=== PATIENT | male | born 1955 | race Caucasian/White ===

== ENCOUNTER 2022-02-16 16:05 | Inpatient (IN) | payer MEDICAID ==
[~2022-02-16] VITALS: Ht 172.7 cm; Wt 63.2 kg
[2022-02-16] MEDS ORDERED: SODIUM CHLORIDE 0.9% 1,000 ML IV ONE (16:15)
[2022-02-16] MEDS ORDERED: NALOXONE HCL 1 MG/ML 2 ML SYRINGE IVP ONE ×2 (16:15→16:20)
[2022-02-16] MEDS ORDERED: ROCURONIUM BROMIDE 10 MG/ML 5 ML VIAL ONE (16:29)
[2022-02-16 16:47] LABS: ABG BASE EXCESS -5.2 mmol/L (-2.0-3.0); ABG METHEMOGLOBIN 0.4 % (0.0-1.5); ABG OXYGEN CONTENT 17.8 mL/dL (15.0-23.0); ABG OXYGEN SATURATION 94.4 % (95.0-98.0); ABG OXYHEMOGLOBIN 93.1 % (94.0-100.0); ABG PCO2 31 mmHg (35-45); ABG PH 7.411 (7.35-7.450); ABG TOTAL HEMOGLOBIN 13.6 G/dL (12.0-18.0); PO2, ARTERIAL BG 76.3 mmHg (66.0-74.0); SOURCE, BLOOD GAS ARTERIAL; TEMPERATURE, FAHRENHEIT, BG 97.9 FAHREN (96.0-98.6)
[2022-02-16 16:48] LABS: BASOPHILS % (AUTO) 0.8 % (0.0-2.0); EOSINOPHILS % (AUTO) 0.6 % (1.0-6.0); HEMATOCRIT 42.1 % (41-53); HEMOGLOBIN 13.2 g/dL (13.5-17.5); LYMPHOCYTES # (AUTO) 1.7 K/uL (1.0-4.8); LYMPHOCYTES % (AUTO) 23.5 % (22.0-44.0); MEAN CORPUSCULAR HEMOGLOBIN 28.2 pg (26.0-34.0); MEAN CORPUSCULAR HGB CONC 31.3 G/dL (31.0-37.0); MEAN CORPUSCULAR VOLUME 90 fL (80-100); MONOCYTES # (AUTO) 0.6 K/uL (0.1-1.0); MONOCYTES % (AUTO) 8.6 % (2.0-9.0); NEUTROPHILS # (AUTO) 4.9 K/uL (1.8-7.7); NEUTROPHILS % (AUTO) 66.5 % (40.0-70.0); PLATELET COUNT (AUTO) 111 K/uL (150-450); RED BLOOD CELL COUNT(AUTO) 4.67 MIL/uL (4.50-5.90); RED CELL DISTRIBUTION WIDTH 18.1 % (11.5-14.5)
[2022-02-16 16:48] LABS: ABG A-A DIFF O2 606.4 mmHg (10-20.0); SITE, BLOOD GAS RT RADIAL
[2022-02-16 16:49] LABS: O2 DEVICE,BLOOD GAS NON REBREATHER (ROOM AIR)
[2022-02-16 16:55] LABS: B-TYPE NATRIURETIC PEPTIDE 1280 pg/mL (0-100)
[2022-02-16 17:02] LABS: ANION GAP 11 mmol/L (8-16); CALCIUM, TOTAL 7.9 mg/dL (8.8-10.5); CARBON DIOXIDE 26 mmol/L (22-29); CHLORIDE 107 mmol/L (98-107); CREATININE 1.73 mg/dL (0.60-1.30); GLUCOSE,RANDOM 130 mg/dL (70-110); POTASSIUM 3.8 mmol/L (3.5-5.1); SODIUM SERUM 144 mmol/L (136-145); UREA NITROGEN, BLOOD 35 mg/dL (7-18)
[2022-02-16 17:03] LABS: AMMONIA 85 umol/L (11-32)
[2022-02-16 17:04] LABS: GLOMERULAR FILTR. RATE CALC 36 mL/min (>60)
[2022-02-16 17:11] LABS: PLATELET MORPHOLOGY COMMENT GIANT PLTS PRESENT
[2022-02-16 17:23] LABS: COVID AG,FIA SOURCE NASOPHARYNGEAL
[2022-02-16 17:26] LABS: ALANINE AMINOTRANSFERASE 68 U/L (12-78); ALBUMIN 2.5 g/dL (3.4-5.0); ALKALINE PHOSPHATASE 118 U/L (46-116); ASPARTATE AMINOTRANSFERASE 60 U/L (15-37); BILIRUBIN,TOTAL 0.6 mg/dL (0.1-1.0); CREATINE KINASE, TOTAL ONLY 173 U/L (39-308); LIPASE 54 U/L (73-393); TOTAL PROTEIN, SERUM 5.2 g/dL (6.4-8.2)
[2022-02-16] MEDS ORDERED: ROCURONIUM BROMIDE 10 MG/ML 5 ML VIAL IVP ONE (17:30)
[2022-02-16] MEDS ORDERED: LACTULOSE 20 GM/30 ML SOLUTION UDCUP NG ONE (17:30)
[2022-02-16 17:31] LABS: ACETAMINOPHEN < 2 mcg/mL (10-30)
[2022-02-16 17:35] LABS: LACTIC ACID 4.4 mmol/L (0.4-2.0)
[2022-02-16] MEDS ORDERED: PHENYLEPHRINE HCL IN 0.9% NACL 400 MCG/10 ML SYRINGE IVP ONE (17:35)
[2022-02-16] MEDS: PROPOFOL 1000 MG/ISO-OSM 100 ML IV PRN (17:51)
[2022-02-16 18:10] LABS: APPEARANCE,URINE HAZY (CLEAR); BILIRUBIN,URINE NEGATIVE (NEGATIVE); GLUCOSE, URINE (UA) NEGATIVE (NEGATIVE); KETONES,URINE NEGATIVE (NEGATIVE); LEUKOCYTE ESTERASE ,URINE TRACE (NEGATIVE); NITRATE,URINE NEGATIVE (NEGATIVE); OCCULT BLOOD,URINE SMALL (NEGATIVE); PH,URINE 6.5 (5.0-8.0); PROTEIN,URINE 100-200,SEE CONFIRM mg/dL (NEGATIVE); SPECIFIC GRAVITIY, URINE 1.009 (1.003-1.030); UROBILINOGEN,URINE <=1.0 mg/dL (<=1.0)
[2022-02-16 18:23] LABS: BACTERIA,URINE None Seen /HPF (None Seen); SQUAMOUS EPITHELIAL CELL,UR Rare /LPF (None Seen); WBC,URINE 0-2 /HPF (0-5)
[2022-02-16 18:29] LABS: SULFOSALICYLIC ACID,URINE 2+ (Negative)
[2022-02-16 18:53] LABS: AMPHET/METH SCREEN,URINE NEGATIVE (NEGATIVE); BARBITURATE SCREEN, URINE NEGATIVE (NEGATIVE); BENZODIAZEPINES SCREEN,URINE NEGATIVE (NEGATIVE); CANNABINOID SCREEN,URINE POSITIVE (NEGATIVE); COCAINE SCREEN,URINE NEGATIVE (NEGATIVE); METHADONE SCREEN, URINE NEGATIVE (NEGATIVE); OPIATE SCREEN,URINE NEGATIVE (NEGATIVE)
[2022-02-16 19:04] LABS: PHENCYCLIDINE SCREEN,URINE NEGATIVE (NEGATIVE)
[2022-02-16] MEDS ORDERED: ONDANSETRON HCL 4 MG/2 ML VIAL IVP PRN (19:30)
[2022-02-16] MEDS ORDERED: PIPERACILLIN/TAZO 3.375 GM/D5W 50 ML IV ONE (20:00)
[2022-02-16 20:49] LABS: ABG BASE EXCESS -5.7 mmol/L (-2.0-3.0); ABG CARBOXYHEMOGLOBIN 0.2 % (0.0-1.5); ABG HCO3 20.3 mmol/L (22.0-26.0); ABG METHEMOGLOBIN 0.4 % (0.0-1.5); ABG OXYGEN CONTENT 19.8 mL/dL (15.0-23.0); ABG OXYGEN SATURATION 99.2 % (95.0-98.0); ABG OXYHEMOGLOBIN 98.6 % (94.0-100.0); ABG PCO2 40 mmHg (35-45); ABG PH 7.328 (7.35-7.450); ABG TOTAL HEMOGLOBIN 13.9 G/dL (12.0-18.0); PO2, ARTERIAL BG 223.5 mmHg (79.0-87.0); SOURCE, BLOOD GAS ARTERIAL; TEMPERATURE, FAHRENHEIT, BG 98.6 FAHREN (96.0-98.6)
[2022-02-16 20:50] LABS: O2 DEVICE,BLOOD GAS VENTILATOR (ROOM AIR); SITE, BLOOD GAS ARTERIAL LINE; VT, ABG 450 ml
[2022-02-16 20:51] LABS: PEEP,BG 5 cm H2O
[2022-02-16] MEDS ORDERED: LACTULOSE 20 GM/30 ML SOLUTION UDCUP PO ONE (23:30)
[2022-02-17 00:38] LABS: CALCIUM, TOTAL 7.7 mg/dL (8.8-10.5); CREATININE 1.42 mg/dL (0.60-1.30); POTASSIUM 4.1 mmol/L (3.5-5.1)
[2022-02-17] MEDS: HEPARIN SODIUM,PORCINE 5,000 UNITS/ML VIAL SQ SCH ×3 (01:04→15:12)
[2022-02-17] MEDS: PIPERACILLIN/TAZO 3.375 GM/D5W 50 ML IV SCH ×4 (04:48→21:06)
[2022-02-17] MEDS: PROPOFOL 1000 MG/ISO-OSM 100 ML IV PRN ×3 (04:51→21:08)
[2022-02-17 05:25] LABS: BASOPHILS % (AUTO) 0.6 % (0.0-2.0); EOSINOPHILS % (AUTO) 0.3 % (1.0-6.0); HEMATOCRIT 44.4 % (41-53); HEMOGLOBIN 14.2 g/dL (13.5-17.5); LYMPHOCYTES # (AUTO) 0.9 K/uL (1.0-4.8); LYMPHOCYTES % (AUTO) 9.5 % (22.0-44.0); MEAN CORPUSCULAR HEMOGLOBIN 28.8 pg (26.0-34.0); MEAN CORPUSCULAR HGB CONC 32.1 G/dL (31.0-37.0); MEAN CORPUSCULAR VOLUME 90 fL (80-100); MONOCYTES # (AUTO) 0.6 K/uL (0.1-1.0); MONOCYTES % (AUTO) 7.2 % (2.0-9.0); NEUTROPHILS # (AUTO) 7.4 K/uL (1.8-7.7); NEUTROPHILS % (AUTO) 82.4 % (40.0-70.0); PLATELET COUNT (AUTO) 110 K/uL (150-450); RED BLOOD CELL COUNT(AUTO) 4.95 MIL/uL (4.50-5.90); RED CELL DISTRIBUTION WIDTH 18.7 % (11.5-14.5)
[2022-02-17 05:28] LABS: CALCIUM, TOTAL 8.3 mg/dL (8.8-10.5); CREATININE 1.32 mg/dL (0.60-1.30); MAGNESIUM 2.3 mg/dL (1.80-2.40)
[2022-02-17 05:39] LABS: PLATELET MORPHOLOGY COMMENT GIANT PLTS PRESENT
[2022-02-17] MEDS ORDERED: DEXTROSE 5%-WATER 500 ML IV ONE (06:00)
[2022-02-17] MEDS: ACETAMINOPHEN 325 MG TABLET PO PRN ×2 (07:49→16:47)
[2022-02-17] MEDS: FAMOTIDINE 10 MG/ML 2 ML VIAL IVP SCH ×2 (11:25→20:32)
[2022-02-17] MEDS ORDERED: PHENYLEPHRINE 200 MG/D5%-WATER 250 ML IV PRN (16:00)
[2022-02-17] MEDS ORDERED: FUROSEMIDE 40 MG/4 ML VIAL IVP ONE (16:00)
[2022-02-17] MEDS ORDERED: HEPARIN SODIUM,PORCINE 5,000 UNITS/ML VIAL IVP PRN (17:30)
[2022-02-17] MEDS ORDERED: HEPARIN SODIUM,PORCINE 5,000 UNITS/ML VIAL IVP ONE (17:30)
[2022-02-17] MEDS: HEPARIN SODIUM 25000 UNITS/D5W 250 ML IV PRN (18:12)
[2022-02-17] MEDS ORDERED: FUROSEMIDE 40 MG/4 ML VIAL IVP SCH (21:00)
[2022-02-18] MEDS: ACETAMINOPHEN 325 MG TABLET PO PRN ×4 (00:37→18:51)
[2022-02-18] MEDS: PIPERACILLIN/TAZO 3.375 GM/D5W 50 ML IV SCH ×4 (03:17→21:31)
[2022-02-18] MEDS: PROPOFOL 1000 MG/ISO-OSM 100 ML IV PRN ×3 (05:39→18:50)
[2022-02-18 05:53] LABS: BASOPHILS % (AUTO) 0.2 % (0.0-2.0); EOSINOPHILS % (AUTO) 0 % (1.0-6.0); HEMATOCRIT 44.6 % (41-53); HEMOGLOBIN 14.2 g/dL (13.5-17.5); LYMPHOCYTES # (AUTO) 0.5 K/uL (1.0-4.8); LYMPHOCYTES % (AUTO) 3.7 % (22.0-44.0); MEAN CORPUSCULAR HEMOGLOBIN 28.6 pg (26.0-34.0); MEAN CORPUSCULAR HGB CONC 31.9 G/dL (31.0-37.0); MEAN CORPUSCULAR VOLUME 90 fL (80-100); MONOCYTES # (AUTO) 0.9 K/uL (0.1-1.0); NEUTROPHILS # (AUTO) 12.1 K/uL (1.8-7.7); RED BLOOD CELL COUNT(AUTO) 4.97 MIL/uL (4.50-5.90); RED CELL DISTRIBUTION WIDTH 18.5 % (11.5-14.5)
[2022-02-18 06:05] LABS: ALBUMIN 2.2 g/dL (3.4-5.0); BILIRUBIN,TOTAL 0.8 mg/dL (0.1-1.0); CREATININE 1.58 mg/dL (0.60-1.30); POTASSIUM 3.7 mmol/L (3.5-5.1); TOTAL PROTEIN, SERUM 5.1 g/dL (6.4-8.2)
[2022-02-18 06:07] LABS: CREATININE,URINE RANDOM 40.5 mg/dL (30.0-125.0)
[2022-02-18 08:08] LABS: NEUTROPHILS % (AUTO) 89.1 % (40.0-70.0)
[2022-02-18 08:27] LABS: PLATELET COUNT (AUTO) 92 K/uL (150-450)
[2022-02-18 08:29] LABS: PLATELET MORPHOLOGY COMMENT LARGE PLTS PRESENT
[2022-02-18] MEDS: FAMOTIDINE 10 MG/ML 2 ML VIAL IVP SCH ×2 (08:43→21:31)
[2022-02-18] MEDS: FUROSEMIDE 40 MG/4 ML VIAL IVP SCH (08:43)
[2022-02-18] MEDS: METOPROLOL SUCCINATE 25 MG ER TABLET PO SCH ×2 (09:00→21:31)
[2022-02-18 16:00] VITALS: BP 141/68
[2022-02-18] MEDS ORDERED: SODIUM CHLORIDE 0.9% 250 ML IV ONE (16:02)
[2022-02-18] MEDS: HEPARIN SODIUM 25000 UNITS/D5W 250 ML IV PRN (16:08)
[2022-02-18 20:00] VITALS: BP 147/71
[2022-02-18 20:56] LABS: GLUCOSE,POINT OF CARE 129 MG/DL (70-110)
[2022-02-18] MEDS: HEPARIN SODIUM,PORCINE 5,000 UNITS/ML VIAL IVP PRN (22:36)
[2022-02-19] VITALS: BP 133/72
[2022-02-19] MEDS: PIPERACILLIN/TAZO 3.375 GM/D5W 50 ML IV SCH ×4 (03:28→22:13)
[2022-02-19 04:00] VITALS: BP 119/57
[2022-02-19 05:56] LABS: BASOPHILS % (AUTO) 0.3 % (0.0-2.0); EOSINOPHILS % (AUTO) 0 % (1.0-6.0); HEMATOCRIT 44.7 % (41-53); HEMOGLOBIN 14.3 g/dL (13.5-17.5); LYMPHOCYTES # (AUTO) 0.4 K/uL (1.0-4.8); LYMPHOCYTES % (AUTO) 3.3 % (22.0-44.0); MEAN CORPUSCULAR HEMOGLOBIN 28.6 pg (26.0-34.0); MEAN CORPUSCULAR HGB CONC 32.1 G/dL (31.0-37.0); MEAN CORPUSCULAR VOLUME 89 fL (80-100); MONOCYTES % (AUTO) 7.5 % (2.0-9.0); NEUTROPHILS # (AUTO) 11.6 K/uL (1.8-7.7); PLATELET COUNT (AUTO) 83 K/uL (150-450)
[2022-02-19 06:01] LABS: NEUTROPHILS % (AUTO) 88.9 % (40.0-70.0)
[2022-02-19 06:12] LABS: ALBUMIN 2.1 g/dL (3.4-5.0); CALCIUM, TOTAL 8.5 mg/dL (8.8-10.5); CREATININE 1.52 mg/dL (0.60-1.30); MAGNESIUM 2.1 mg/dL (1.80-2.40); POTASSIUM 3.6 mmol/L (3.5-5.1); TOTAL PROTEIN, SERUM 5.4 g/dL (6.4-8.2)
[2022-02-19 06:47] LABS: PLATELET MORPHOLOGY COMMENT LARGE PLTS PRESENT
[2022-02-19] MEDS: PROPOFOL 1000 MG/ISO-OSM 100 ML IV PRN (07:01)
[2022-02-19 08:00] VITALS: BP 153/72
[2022-02-19] MEDS: METOPROLOL SUCCINATE 25 MG ER TABLET PO SCH ×2 (09:20→22:13)
[2022-02-19] MEDS: FUROSEMIDE 40 MG/4 ML VIAL IVP SCH (09:20)
[2022-02-19] MEDS: FAMOTIDINE 10 MG/ML 2 ML VIAL IVP SCH ×2 (09:20→22:13)
[2022-02-19 11:19] LABS: ABG A-A DIFF O2 102.3 mmHg (10-20.0); ABG BASE EXCESS 1.6 mmol/L (-2.0-3.0); ABG CARBOXYHEMOGLOBIN 1.2 % (0.0-1.5); ABG HCO3 26.1 mmol/L (22.0-26.0); ABG METHEMOGLOBIN 0.3 % (0.0-1.5); ABG OXYGEN CONTENT 19.8 mL/dL (15.0-23.0); ABG OXYHEMOGLOBIN 92.6 % (94.0-100.0); ABG PCO2 36 mmHg (35-45); ABG PH 7.463 (7.35-7.450); ABG TOTAL HEMOGLOBIN 15.2 G/dL (12.0-18.0); CPAP, BG 0 cm H2O; O2 DEVICE,BLOOD GAS VENTILATOR (ROOM AIR); PRESSURE SUPPORT, BG 8 cm H2O; SITE, BLOOD GAS ARTERIAL LINE; SOURCE, BLOOD GAS ARTERIAL; SPONTANEOUS VT, BG 625 ml; TEMPERATURE, FAHRENHEIT, BG 98.6 FAHREN (96.0-98.6); VENT MODE, BG CPAP (ROOM AIR)
[2022-02-19 12:00] VITALS: BP 149/74
[2022-02-19 16:00] VITALS: BP 148/69
[2022-02-19] MEDS: HEPARIN SODIUM 25000 UNITS/D5W 250 ML IV PRN (17:01)
[2022-02-19 18:48] LABS: ABG BASE EXCESS 2.4 mmol/L (-2.0-3.0); ABG CARBOXYHEMOGLOBIN 0.9 % (0.0-1.5); ABG HCO3 26.8 mmol/L (22.0-26.0); ABG METHEMOGLOBIN 0.3 % (0.0-1.5); ABG OXYGEN CONTENT 20.7 mL/dL (15.0-23.0); ABG OXYGEN SATURATION 93.6 % (95.0-98.0); ABG OXYHEMOGLOBIN 92.5 % (94.0-100.0); ABG PCO2 35 mmHg (35-45); ABG PH 7.487 (7.35-7.450); ABG TOTAL HEMOGLOBIN 15.9 G/dL (12.0-18.0); PO2, ARTERIAL BG 65.5 mmHg (79.0-87.0); SOURCE, BLOOD GAS ARTERIAL; TEMPERATURE, FAHRENHEIT, BG 97.9 FAHREN (96.0-98.6)
[2022-02-19 18:49] LABS: ABG A-A DIFF O2 122.2 mmHg (10-20.0); O2 DEVICE,BLOOD GAS NASAL VANNULA (ROOM AIR); SITE, BLOOD GAS LFT RADIAL
[2022-02-19 20:00] VITALS: BP 161/82
[2022-02-19] MEDS: ACETAMINOPHEN 325 MG TABLET PO PRN (22:18)
[2022-02-20] VITALS: BP 164/67
[2022-02-20 04:00] VITALS: BP 161/82
[2022-02-20] MEDS: PIPERACILLIN/TAZO 3.375 GM/D5W 50 ML IV SCH ×4 (04:47→20:53)
[2022-02-20] MEDS ORDERED: SODIUM CHLORIDE 0.9% 250 ML IV ONE (05:37)
[2022-02-20 08:00] VITALS: BP 148/62
[2022-02-20] MEDS: FUROSEMIDE 40 MG/4 ML VIAL IVP SCH (10:02)
[2022-02-20] MEDS: FAMOTIDINE 10 MG/ML 2 ML VIAL IVP SCH ×2 (10:03→20:51)
[2022-02-20] MEDS: METOPROLOL SUCCINATE 25 MG ER TABLET PO SCH (10:03)
[2022-02-20] MEDS: HEPARIN SODIUM,PORCINE 5,000 UNITS/ML VIAL IVP PRN (10:05)
[2022-02-20] MEDS ORDERED: METOPROLOL SUCCINATE 25 MG ER TABLET PO ONE (11:00)
[2022-02-20 12:00] VITALS: BP 151/75
[2022-02-20 16:00] VITALS: BP 142/58
[2022-02-21] VITALS: BP 131/72
[2022-02-21] MEDS: PIPERACILLIN/TAZO 3.375 GM/D5W 50 ML IV SCH ×4 (03:43→21:02)
[2022-02-21 04:00] VITALS: BP 136/53
[2022-02-21 07:05] LABS: CALCIUM, TOTAL 8.2 mg/dL (8.8-10.5); CREATININE 1.41 mg/dL (0.60-1.30); POTASSIUM 3.4 mmol/L (3.5-5.1)
[2022-02-21] MEDS: FAMOTIDINE 10 MG/ML 2 ML VIAL IVP SCH ×2 (07:52→20:53)
[2022-02-21] MEDS: FUROSEMIDE 40 MG/4 ML VIAL IVP SCH (07:52)
[2022-02-21 08:00] VITALS: BP 134/56
[2022-02-21] MEDS ORDERED: METOPROLOL SUCCINATE 50 MG ER TABLET PO SCH (09:00)
[2022-02-21 10:43] LABS: BASOPHILS % (AUTO) 0.7 % (0.0-2.0); EOSINOPHILS % (AUTO) 0.2 % (1.0-6.0); HEMATOCRIT 42.3 % (41-53); HEMOGLOBIN 13.6 g/dL (13.5-17.5); LYMPHOCYTES # (AUTO) 0.6 K/uL (1.0-4.8); MEAN CORPUSCULAR HEMOGLOBIN 28.8 pg (26.0-34.0); MEAN CORPUSCULAR HGB CONC 32.2 G/dL (31.0-37.0); MEAN CORPUSCULAR VOLUME 90 fL (80-100); MONOCYTES # (AUTO) 0.8 K/uL (0.1-1.0); MONOCYTES % (AUTO) 11.1 % (2.0-9.0); NEUTROPHILS # (AUTO) 6.1 K/uL (1.8-7.7); PLATELET COUNT (AUTO) 72 K/uL (150-450); RED BLOOD CELL COUNT(AUTO) 4.72 MIL/uL (4.50-5.90); RED CELL DISTRIBUTION WIDTH 17.6 % (11.5-14.5)
[2022-02-21 10:47] LABS: PLATELET MORPHOLOGY COMMENT LARGE PLTS PRESENT
[2022-02-21 12:00] VITALS: BP 125/58
[2022-02-21 16:00] VITALS: BP 118/60
[2022-02-21 20:00] VITALS: BP 108/66
[2022-02-21] MEDS: APIXABAN 5 MG TABLET PO SCH (20:53)
[2022-02-21] MEDS: ACETAMINOPHEN 325 MG TABLET PO PRN (20:53)
[2022-02-22] VITALS (7 sets, daily range): BP systolic 117–146; BP diastolic 63–87
[2022-02-22] MEDS: PIPERACILLIN/TAZO 3.375 GM/D5W 50 ML IV SCH ×4 (05:17→22:08)
[2022-02-22 07:12] LABS: BASOPHILS % (AUTO) 0.5 % (0.0-2.0); EOSINOPHILS % (AUTO) 0.9 % (1.0-6.0); HEMATOCRIT 40.8 % (41-53); HEMOGLOBIN 13.2 g/dL (13.5-17.5); LYMPHOCYTES # (AUTO) 0.7 K/uL (1.0-4.8); LYMPHOCYTES % (AUTO) 12.8 % (22.0-44.0); MEAN CORPUSCULAR HEMOGLOBIN 28.7 pg (26.0-34.0); MEAN CORPUSCULAR HGB CONC 32.2 G/dL (31.0-37.0); MEAN CORPUSCULAR VOLUME 89 fL (80-100); MONOCYTES # (AUTO) 0.7 K/uL (0.1-1.0); MONOCYTES % (AUTO) 13.2 % (2.0-9.0); NEUTROPHILS # (AUTO) 4.1 K/uL (1.8-7.7); NEUTROPHILS % (AUTO) 72.6 % (40.0-70.0); RED BLOOD CELL COUNT(AUTO) 4.58 MIL/uL (4.50-5.90); RED CELL DISTRIBUTION WIDTH 17.6 % (11.5-14.5)
[2022-02-22 08:09] LABS: PLATELET COUNT (AUTO) 71 K/uL (150-450)
[2022-02-22 08:10] LABS: PLATELET MORPHOLOGY COMMENT GIANT PLTS PRESENT
[2022-02-22] MEDS ORDERED: SODIUM CHLORIDE 0.9% 500 ML IV ONE (09:00)
[2022-02-22] MEDS: FUROSEMIDE 40 MG TABLET PO SCH (09:07)
[2022-02-22] MEDS: LOSARTAN POTASSIUM 25 MG TABLET PO SCH (09:08)
[2022-02-22] MEDS: APIXABAN 5 MG TABLET PO SCH ×2 (09:08→20:41)
[2022-02-22] MEDS: FAMOTIDINE 10 MG/ML 2 ML VIAL IVP SCH ×2 (09:08→21:55)
[2022-02-22] MEDS: ACETAMINOPHEN 325 MG TABLET PO PRN (21:55)
[2022-02-23] MEDS: PIPERACILLIN/TAZO 3.375 GM/D5W 50 ML IV SCH ×4 (03:36→22:17)
[2022-02-23 04:11] VITALS: BP 125/79
[2022-02-23 07:12] LABS: BASOPHILS % (AUTO) 0.5 % (0.0-2.0); EOSINOPHILS % (AUTO) 1.5 % (1.0-6.0); HEMATOCRIT 41.9 % (41-53); HEMOGLOBIN 13.5 g/dL (13.5-17.5); LYMPHOCYTES # (AUTO) 0.7 K/uL (1.0-4.8); LYMPHOCYTES % (AUTO) 10.9 % (22.0-44.0); MEAN CORPUSCULAR HEMOGLOBIN 28.7 pg (26.0-34.0); MEAN CORPUSCULAR HGB CONC 32.3 G/dL (31.0-37.0); MEAN CORPUSCULAR VOLUME 89 fL (80-100); MONOCYTES # (AUTO) 0.8 K/uL (0.1-1.0); MONOCYTES % (AUTO) 11.9 % (2.0-9.0); NEUTROPHILS # (AUTO) 5.1 K/uL (1.8-7.7); NEUTROPHILS % (AUTO) 75.2 % (40.0-70.0); PLATELET COUNT (AUTO) 77 K/uL (150-450); RED BLOOD CELL COUNT(AUTO) 4.71 MIL/uL (4.50-5.90); RED CELL DISTRIBUTION WIDTH 17.3 % (11.5-14.5)
[2022-02-23 07:53] LABS: PLATELET MORPHOLOGY COMMENT GIANT PLTS PRESENT
[2022-02-23 08:19] VITALS: BP 131/72
[2022-02-23] MEDS: FAMOTIDINE 10 MG/ML 2 ML VIAL IVP SCH ×2 (09:00→19:59)
[2022-02-23] MEDS: METOPROLOL SUCCINATE 25 MG ER TABLET PO SCH (09:28)
[2022-02-23] MEDS: LOSARTAN POTASSIUM 25 MG TABLET PO SCH (09:28)
[2022-02-23] MEDS: SPIRONOLACTONE 25 MG TABLET PO SCH (09:28)
[2022-02-23] MEDS: APIXABAN 5 MG TABLET PO SCH ×2 (09:28→19:58)
[2022-02-23] MEDS: FUROSEMIDE 40 MG TABLET PO SCH (09:28)
[2022-02-23 11:44] VITALS: BP 114/79
[2022-02-23 16:20] VITALS: BP 126/71
[2022-02-23] MEDS ORDERED: LORazepam 2 MG/ML VIAL IVP ONE ×2 (18:30→19:30)
[2022-02-23] MEDS ORDERED: HALOPERIDOL LACTATE 5 MG/ML VIAL IVP ONE (19:30)
[2022-02-23] MEDS ORDERED: DiphenhydrAMINE HCL 50 MG/ML VIAL IM ONE (19:30)
[2022-02-23 19:40] VITALS: BP 115/72
[2022-02-24 00:10] VITALS: BP 98/68
[2022-02-24 03:30] VITALS: BP 111/85
[2022-02-24] MEDS: PIPERACILLIN/TAZO 3.375 GM/D5W 50 ML IV SCH ×3 (04:41→16:00)
[2022-02-24 06:55] LABS: BASOPHILS % (AUTO) 0.4 % (0.0-2.0); EOSINOPHILS % (AUTO) 1.5 % (1.0-6.0); HEMATOCRIT 39.8 % (41-53); HEMOGLOBIN 12.8 g/dL (13.5-17.5); LYMPHOCYTES # (AUTO) 0.9 K/uL (1.0-4.8); LYMPHOCYTES % (AUTO) 12.7 % (22.0-44.0); MEAN CORPUSCULAR HEMOGLOBIN 28.6 pg (26.0-34.0); MEAN CORPUSCULAR HGB CONC 32.2 G/dL (31.0-37.0); MEAN CORPUSCULAR VOLUME 89 fL (80-100); MONOCYTES # (AUTO) 0.8 K/uL (0.1-1.0); MONOCYTES % (AUTO) 11.3 % (2.0-9.0); NEUTROPHILS # (AUTO) 5.5 K/uL (1.8-7.7); NEUTROPHILS % (AUTO) 74.1 % (40.0-70.0); PLATELET COUNT (AUTO) 89 K/uL (150-450); RED BLOOD CELL COUNT(AUTO) 4.49 MIL/uL (4.50-5.90); RED CELL DISTRIBUTION WIDTH 16.9 % (11.5-14.5)
[2022-02-24 07:28] VITALS: BP 115/60
[2022-02-24 07:52] LABS: PLATELET MORPHOLOGY COMMENT GIANT PLTS PRESENT
[2022-02-24] MEDS: SPIRONOLACTONE 25 MG TABLET PO SCH (10:42)
[2022-02-24] MEDS: LOSARTAN POTASSIUM 25 MG TABLET PO SCH (10:43)
[2022-02-24] MEDS: METOPROLOL SUCCINATE 25 MG ER TABLET PO SCH (10:43)
[2022-02-24] MEDS: FUROSEMIDE 40 MG TABLET PO SCH (10:43)
[2022-02-24] MEDS: APIXABAN 5 MG TABLET PO SCH (10:44)
[2022-02-24] MEDS: FAMOTIDINE 10 MG/ML 2 ML VIAL IVP SCH (10:45)
[2022-02-24 11:54] VITALS: BP 110/64
[2022-02-24 15:39] VITALS: BP 126/64
[2022-02-28] MEDS ORDERED: APIXABAN 5 MG TABLET PO SCH (21:00)
== END 2022-02-24 17:00 | DRG 812 ==
LOC: EMS 16:08 → EDBD 16:08 → ICU 19:25 → UNDOADMIN 02-18 10:35 → ICU 02-18 10:35 → 5S 02-22 02:02 → ICU 02-22 02:02 → 5S 02-23 14:33 → UNDODISIN 02-24 17:00
PROVIDERS: ADMIT Internal Medicine; ATTEND Hospitalist
PROC: 5A1945Z Respiratory Ventilation, 24-96 Consecutive Hours (ICD-10-PCS; principal; 2022-02-16)
PROC: 0BH17EZ Insertion of Endotracheal Airway into Trachea, Via Natural or Artificial Opening (ICD-10-PCS; 2022-02-16)
DX: T40.411A Poisoning by fentanyl or fentanyl analogs, accidental (unintentional), initial encounter (principal); I46.9 Cardiac arrest, cause unspecified; J96.01 Acute respiratory failure with hypoxia; J69.0 Pneumonitis due to inhalation of food and vomit; G92.9 Unspecified toxic encephalopathy; I50.23 Acute on chronic systolic (congestive) heart failure; E43 Unspecified severe protein-calorie malnutrition; N17.9 Acute kidney failure, unspecified; K76.82 Hepatic encephalopathy; E87.0 Hyperosmolality and hypernatremia; I42.0 Dilated cardiomyopathy; I82.4Z3 Acute embolism and thrombosis of unspecified deep veins of distal lower extremity, bilateral; F15.10 Other stimulant abuse, uncomplicated; J91.8 Pleural effusion in other conditions classified elsewhere; R64 Cachexia; N18.30 Chronic kidney disease, stage 3 unspecified; Z78.1 Physical restraint status; Z87.891 Personal history of nicotine dependence; Y92.89 Other specified places as the place of occurrence of the external cause; Z79.899 Other long term (current) drug therapy; Z68.21 Body mass index [BMI] 21.0-21.9, adult; Z91.198 Patient's noncompliance with other medical treatment and regimen for other reason; Z99.11 Dependence on respirator [ventilator] status
CPT/HCPCS: 36600; 51702; 70450; 71045; 76604; 76700; 80048; 80053; 80307; 81001; 81002; 82140; 82550; 82570; 82805; 82962; 83605; 83690; 83735; 83880; 84300; 84484; 85025; 85730; 87040; 87081; 92610; 93005; 94002; 94003; 97116; 97162; 97167; 97530; 97535; 99291; 99292; G0238; G0378; G0480; G0481; J1200; J1630; J1644; J1940; J2060; J2543; J2704; J3490; J7040; J7050; J7060; Q9967; 36415-L1; 36415-TC

== ENCOUNTER 2022-03-05 08:52 | Emergency (ER) | payer MEDICAID ==
[~2022-03-05] VITALS: Ht 162.6 cm; Wt 77.0 kg
[2022-03-05 09:20] VITALS: BP 101/69
== END 2022-03-05 10:56 | disposition left against medical advice (07) ==
LOC: EMS 09:07
DX: H92.02 Otalgia, left ear (principal); M53.3 Sacrococcygeal disorders, not elsewhere classified; R23.4 Changes in skin texture; F17.210 Nicotine dependence, cigarettes, uncomplicated; F12.90 Cannabis use, unspecified, uncomplicated; F15.90 Other stimulant use, unspecified, uncomplicated; Z98.890 Other specified postprocedural states
CPT/HCPCS: 99281; Z7502

== ENCOUNTER → 2024-02-11 | Emergency (ER) | payer MEDICAID, OTHER ==
[~2024-02-11] VITALS: Ht 170.2 cm; Wt 79.2 kg
[~2024-02-11] MED LIST: DEXTROSE 50%-WATER 25 GM/50 ML SYRINGE IVP ONE; SODIUM CHLORIDE 0.9% 1,000 ML IV ONE
[2024-02-11 16:48] VITALS: TEMP 98.4
[2024-02-11 17:10] LABS: GLUCOMETER DEV NAME(LOC) ERT.6; GLUCOSE,POINT OF CARE 69 MG/DL (70-110)
[2024-02-11 17:26] LABS: BASOPHILS % (AUTO) 0.4 % (0.0-2.0); EOSINOPHILS % (AUTO) 0.6 % (1.0-6.0); HEMATOCRIT 39.2 % (41-53); HEMOGLOBIN 12.6 g/dL (13.5-17.5); LYMPHOCYTES # (AUTO) 0.7 K/uL (1.0-4.8); LYMPHOCYTES % (AUTO) 13.8 % (22.0-44.0); MEAN CORPUSCULAR HGB CONC 32.1 G/dL (31.0-37.0); MEAN CORPUSCULAR VOLUME 87 fL (80-100); MONOCYTES # (AUTO) 0.5 K/uL (0.1-1.0); NEUTROPHILS # (AUTO) 3.7 K/uL (1.8-7.7); NEUTROPHILS % (AUTO) 75.2 % (40.0-70.0); PLATELET COUNT (AUTO) 139 K/uL (150-450); RED BLOOD CELL COUNT(AUTO) 4.49 MIL/uL (4.50-5.90); RED CELL DISTRIBUTION WIDTH 21.7 % (11.5-14.5); WHITE BLOOD COUNT (AUTO) 4.9 K/uL (4.5-11.0)
[2024-02-11 17:28] LABS: ANION GAP 6 mmol/L (8-16); CALCIUM, TOTAL 7.3 mg/dL (8.8-10.5); CARBON DIOXIDE 30 mmol/L (22-29); CHLORIDE 103 mmol/L (98-107); CREATININE 2.04 mg/dL (0.60-1.30); GLOMERULAR FILTR. RATE CALC 33 mL/min (>60); GLUCOSE,RANDOM 78 mg/dL (70-110); POTASSIUM 3.7 mmol/L (3.5-5.1); SODIUM SERUM 139 mmol/L (136-145); UREA NITROGEN, BLOOD 45 mg/dL (7-18)
[2024-02-11 17:46] LABS: ALCOHOL, BLOOD (SERUM) < 3 mg/dL (0-10)
[2024-02-11 18:01] LABS: GLUCOMETER DEV NAME(LOC) ERT.6; GLUCOSE,POINT OF CARE 123 MG/DL (70-110)
[2024-02-11 18:15] VITALS: BP 119/71; PULSE 61; RESP 16; O2SAT 96
== END | disposition left against medical advice (07) ==
LOC: EMS 16:54
DX: R51.9 Headache, unspecified (principal); Z53.21 Procedure and treatment not carried out due to patient leaving prior to being seen by health care provider
CPT/HCPCS: 70450; 80048; 82962; 85025; 36415; G0480; 99284